=== PATIENT | female | born 1990 | race Caucasian/White ===

== ENCOUNTER 2023-02-17 10:47 | Emergency (ER) | payer OTHER ==
[~2023-02-17] VITALS: Ht 167.6 cm; Wt 70.3 kg
[2023-02-17 11:21] VITALS: BP 134/77
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
[2023-02-17] MEDS ORDERED: IBUP-1842 PO (12:55)
[2023-02-17] MEDS ORDERED: LID5T TP (13:03)
[2023-02-17 13:04] VITALS: BP 130/72
--- NOTE | 2023-02-17 13:05 | NUR ---
The patient's care was reviewed and supervised by [facility], RN.
--- NOTE | 2023-02-17 13:06 | NUR ---
Patient discharged with v/s stable. Written and verbal after care instructions given and explained. Patient alert, oriented and verbalized understanding of instructions. Ambulatory with steady gait. All questions addressed prior to discharge. ID band removed. Patient advised to follow up with PMD. Rx of MOLTRIN given. Patient educated on indication of medication including possible reaction and side effects. Opportunity to ask questions provided and answered.
== END 2023-02-17 13:04 | disposition home or self-care (01) ==
LOC: MED 10:47
DX: M54.2 Cervicalgia (principal); V89.0XXA Person injured in unspecified motor-vehicle accident, nontraffic, initial encounter; Y93.89 Activity, other specified; Y92.89 Other specified places as the place of occurrence of the external cause; Y99.8 Other external cause status
CPT/HCPCS: 70450; 72125; 81025; 99284